=== PATIENT | male | born 1955 | race Caucasian/White ===

== ENCOUNTER → 2017-01-10 | Outpatient (CLI) | payer BC ==
[~2017-01-10] MED LIST: ASPI-232 PO; ASTNS; CETI10TA84 PO; DAPA1TAB PO; GFNSR600 PO; JANUMET PO; MELA1TAB5 PO; NIAC500T7 PO; SERT-234 PO; SIMV40TA2 PO
[2017-01-10 09:36] LABS: BASO % 0.2 %; BASO ABS # 0.01 K/uL (0-0.2); COMPLETE YES; EOS % 1.6 %; HEMATOCRIT 42.1 % (42-52); LYMPH % 29.9 %; LYMPH ABS # 1.89 K/uL (1.2-3.4); MEAN CELL VOLUME 90.1 fL (80-100); MEAN CORPUSCULAR HEMOGLOBIN 29.8 pg (25-34); MEAN PLATELET VOLUME 10.8 fL (7.4-10.4); MONO % 9.3 %; PLATELET COUNT 190 K/uL (130-400); RED BLOOD COUNT 4.67 M/uL (4.7-6.1); WHITE BLOOD COUNT 6.32 K/uL (4.8-10.8)
[2017-01-10 10:04] LABS: ESTIMATED AVERAGE GLUCOSE 137 mg/dl; HA1C FLAG Normal (Normal)
[2017-01-10 10:12] LABS: ALT/SGPT 26 U/L (12-78); AST/SGOT 18 U/L (15-37); BLOOD UREA NITROGEN 16 mg/dl (7-18); CALCIUM 8.9 mg/dl (8.5-10.1); CARBON DIOXIDE 27 mmol/L (21-32); CHLORIDE 107 mmol/L (98-107); CHOLESTEROL 121 mg/dl (0-200); GLUCOSE 117 mg/dl (70-99); SODIUM 142 mmol/L (136-145); TRIGLYCERIDES 55 mg/dl (0-150); VERY LOW DENSITY LIPOPROT CALC 11 mg/dl
[2017-01-10 10:15] LABS: CHOLESTEROL/HDL RATIO 2.8; HDL CHOLESTEROL 43 mg/dl; LDL CHOLESTEROL CALCULATED 67 mg/dl
== END | disposition home or self-care (01) ==
LOC: C.LAB 09:02
DX: E11.9 Type 2 diabetes mellitus without complications (principal)

== ENCOUNTER → 2017-01-17 | Outpatient (CLI) | payer BC ==
--- NOTE | 2017-01-17 12:41 | DIAGNOSTIC IMAGING REPORT ---
SI JOINTS 3 OR MORE VIEWS CLINICAL HISTORY: LOWER BACK PAIN pain COMPARISON STUDY: None FINDINGS: Mild degenerative sclerosis/ankylosis of the left sacroiliac joint. Minimal changes in the right. Sacral foramina are symmetric. No lytic or blastic process. 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 Minimal to mild degenerative change right sacroiliac joint. Electronically signed by: Brock Morrissey M.D. 01/17/2017 12:39 PM Dictated Date/Time: 01/17/2017 12:39 PM
--- NOTE | 2017-01-17 12:43 | DIAGNOSTIC IMAGING REPORT ---
L-SPINE MIN 4 VIEWS ROUTINE CLINICAL HISTORY: Low back pain COMPARISON STUDY: No previous studies for comparison. FINDINGS: There are mild to moderate multilevel degenerative changes. No fractures subluxations or destructive lesions are visualized. IMPRESSION: No fractures or subluxations identified. Mild to moderate multilevel degenerative change. Electronically signed by: Bandar Parekh M.D. 01/17/2017 12:42 PM Dictated Date/Time: 01/17/2017 12:41 PM
== END | disposition home or self-care (01) ==
LOC: C.RAD1850 12:03
DX: M54.5 Low back pain (principal)

== ENCOUNTER → 2018-02-22 | Outpatient (CLI) | payer OTHER ==
--- NOTE | 2018-02-22 12:10 | DIAGNOSTIC IMAGING REPORT ---
R HAND MIN 3 VIEWS ROUTINE, R WRIST W/NAVICULAR MIN 3 VIEWS HISTORY: 63 years-old Male WRIST PAIN, FALL MONTH AGO acute right hand and wrist pain status post recent fall COMPARISON: None available TECHNIQUE: 3 views of the right hand and 4 views of the right wrist with scaphoid view FINDINGS: HAND: Mild radiocarpal and first carpometacarpal osteoarthritis. Linear lucency of the dorsal distal radius seen only on the lateral view suggests subtle acute nondisplaced fracture with adjacent moderate soft tissue swelling. No acute hand fracture notified. Mild general changes of the interphalangeal and metatarsal phalangeal joint. No opaque foreign body. WRIST: Carpal bones appear intact without acute fracture or dislocation. Degenerative changes as above. No opaque foreign body. IMPRESSION: 1. Linear lucency of the dorsal distal radius suggests subtle acute nondisplaced fracture with moderate adjacent soft tissue swelling. 2. No acute carpal bone fracture identified. 3. Mild degenerative changes as above. The above report was generated using voice recognition software. It may contain grammatical, syntax or spelling errors. Electronically signed by: Eugene Bettencourt M.D. 02/22/2018 12:08 PM Dictated Date/Time: 02/22/2018 12:06 PM
== END | disposition home or self-care (01) ==
LOC: C.RAD1850 11:52
DX: M25.531 Pain in right wrist (principal); W19.XXXA Unspecified fall, initial encounter